=== PATIENT | male | born 1995 | race African-American/Black ===

== ENCOUNTER 2022-07-29 12:37 | Inpatient (IN) | payer OTHER, SELFPAY ==
--- NOTE | 2022-07-29 12:52 | ED_ITS ---
HPI - General Adult General Chief complaint: Psychiatric Symptoms Stated complaint: CRISIS,AGGITATED, SPEAKING LOUD PER EMS Time Seen by Provider: 07/29/22 12:51 Source: patient and EMS Mode of arrival: EMS Limitations: other (patient is having a psychotic break) History of Present Illness HPI narrative: Patient is a 26 year old assigned male at with an unknown medical history presenting to the emergency department today in an obvious psychotic break. Patient is actively yelling about Adrian and that his sister is trying to kill him. Patient is a section 12 via N from the [facility]. Patient refusing to answer any questions. Onset (ago): day(s) Severity: moderate Severity scale (1-10): 5 Treatments prior to arrival: none Related Data Allergies Allergy/AdvReac Type Severity Reaction Status Date / Time No Known Allergies Allergy Verified 07/29/22 12:54 Review of Systems Review of Systems: Yes Unobtainable due to mental status (patient in active p sychotic episode) Constitutional: Constitutional: Denies malaise Eyes: Eyes: Denies eye discharge and Denies loss of vision ENT: Denies dizziness, Denies neck mass and Denies throat swelling Cardiovascular: Cardiovascular: Denies dyspnea Respiratory: Respiratory: Denies cough and Denies dyspnea Gastrointestinal: Gastrointestinal: Denies vomiting Genitourinary: Genitourinary: Reports no additional male genitourinary complaints, Denies hematuria, Denies oliguria, Denies difficulty urinating, Denies dysuria, Denies urinary frequency, Denies urinary hesitancy, Denies urinary incontinence and Denies urinary urgency Musculoskeletal: Musculoskeletal: Denies numbness, Denies stiffness and Denies tingling Neurologic: Denies dizziness, Denies loss of vision, Denies numbness and Denies tingling Psychiatric: Psychiatric: Reports difficulty concentrating and Reports paranoia Endocrine: Endocrine: Reports no additional endocrine complaints Hematologic/Lymphatic: Hematologic/Lymphatic: Reports no additional hematologic/lymphatic complaints Allergic/Immunologic: Allergic/Immunologic: Denies throat swelling PMFSH Past Medical History Attestation statement: The following information was validated with the patient. Source: old records reviewed Social History Social History Advance Directives: No Advance Directives Information Provided: No Guardian: No Physical Exam ED Vital Signs: Vital Signs - 24 hr 07/29/22 13:42 Temperature 98 F Pulse Rate 81 Respiratory Rate 18 Blood Pressure 137/90 H Pulse Oximetry 99 Oxygen Delivery Method Room Air BMI result Body Mass Index 25.0 Const General: cooperative, no acute distress, alert and awake Nutritional Appearance: well nourished Orientation/consciousness: patient oriented x3 Limitations: no limitations HENMT Head: Yes normal to inspection and Yes atraumatic Ears: hearing grossly normal bilaterally and external ears normal General nose exam: Normal external nose present, no nasal discharge noted and no epistaxis Face and sinus: Yes normal facial exam, No abrasion and No laceration Mouth: Normal oral and palatal mucosa present, no drooling and no muffled voice Eyes General: appearance normal, both eyes and all related structures Periorbital: periorbital findings normal Eyelids: Yes eyelids normal Conjunctivae: conjunctivae normal Pupils: Equal, round and reactive pupils present EOM: EOMs intact bilaterally Neck Neck: Yes normal visual inspection, Yes full ROM and Yes no lymphadenopathy Chest Chest palpation & inspection: normal inspection of the chest Resp Effort & Inspection: normal respiratory effort and able to speak in complete sentences Auscultation: clear to auscultation bilaterally Cardio Rate: regular rate Rhythm: regular rhythm GI Inspection: Yes normal to inspection Neuro General: patient oriented x3 and moves all extremities Cranial nerves: Yes Equal, round and reactive pupils present Cognition (Neuro): normal cognition Motor exam (neuro): 5/5 motor strength present throughout Sensory Exam: Normal double simultaneous stimulation for sensation Coordination: [id number] test normal Extrem General: Yes normal to inspection, Yes full ROM and Yes capillary refill normal Psych Appearance: well kempt Speech and movement: Pressured speech present Affect: Labile affect present Attitude: Belligerent attititude/behavior present Thought process: Circumstantial thought process present, Flight of ideas present, Illogical thought process present and Loose association thought process present Thought content: Paranoid delusions present and delusions Insight: Poor insight present (Psych) Judgement: Poor judgement present (Psych) Medications Administered Discontinued Medications Generic Name Dose Route Start Last Admin Trade Name Freq PRN Reason Stop Dose Admin Divalproex Sodium 500 mg 07/29/22 16:19 07/29/22 16:50 Divalproex Sodium Er 500 Mg Tab.Er.24h PO 07/29/22 16:20 Not Given ONCE ONE Lorazepam 2 mg 07/29/22 13:30 07/29/22 13:42 Lorazepam 1 Mg Tablet PO 07/29/22 13:31 Not Given ONCE ONE Risperidone 3 mg 07/29/22 13:30 07/29/22 13:42 Risperidone 3 Mg Tablet PO 07/29/22 13:31 Not Given ONCE ONE Medical Decision Making Medical Decision Making [facility] Narrative: Patient is a 26 year old assigned male at presenting to the emergency department today in an acute psychotic episode. Patient's physical exam showed an acutely psychotic individual. Patient's lab work is pending at this time. Patient will be admitted to psych here once medically cleared. Differential Diagnoses: Differential diagnosis Differential Diagnosis: The differential diagnosis associated with the patient?s presentation includes: psychosis. Discharge Plan Discharge Clinical Impression: Acute psychosis Patient Disposition: Still a Patient Print Language: Ukrainian
[2022-07-29 13:42] VITALS: BP 137/90; PULSE 81; RESP 18; TEMP 36.6; O2SAT 99; BMI 25.0
--- NOTE | 2022-07-29 15:17 | PC.NURSE ---
clients sister called Sarah vera stating client is ivolved with chd yellow team and zari phone number is [phone]. she states if he leaves the hospital he has no where to stay
[2022-07-29 15:33] LABS: Amphetamine Screen Urine Not Detected (Not Detect); Barbiturates, Urine Not Detected (Not Detect); Benzodiazepines Screen Urine Not Detected (Not Detect); Cannabinoid Screen Urine POSITIVE (Not Detect); Cocaine Screen Urine Not Detected (Not Detect); Fentanyl, urine Not Detected (Not Detect); Opiate Screen Urine Not Detected (Not Detect); Phencyclidine Screen Urine Not Detected (Not Detect)
[2022-07-29 15:37] LABS: COVID-19 Test Negative (Negative); IDNOW Serial# 9DB6401D
--- NOTE | 2022-07-29 18:10 | PHA.MEDREC ---
Pharmacy Consult ? Medication Reconciliation Pharmacy has completed the medication reconciliation. Only able to use claim history, medicatiosn last filled 07/22/22
--- NOTE | 2022-07-29 18:48 | PC.ADMIT ---
Pt is a 26 year old male who present to from [facility] at approx 1835 on a 12B. Pt is covid - tox screen + for THC. Per chart review, pt brought to the ED by EMS. Pt is transported into the [facility] with police and security present. Pt was placed on a section 12 by [facility] crisis police co-response clinician per sec 12, pt is off his medications and experiencing increased psychotic symptoms. Upon arrival, he presented with hyper-verbal, loud and tangential speech. Pt reports that his sister called 911 because she always does this. According to hx provided by [facility] pt has a hx of schizophrenia with hx of inpt hospitalization. During admit, pt wanted to immediately go to his room and lay down. Pt answered a few questions with covered wrapped around his head. Pt reported that he had no thoughts of hurting himself or others. Pt reported that he will not take his HS medications of Depakote. Pt stopped answering questions and reported he was going to bed. Provider notified of admission and to place orders. Start treatment plan and monitor for safety.
[2022-07-30] MEDS: LORazepam 1 MG TABLET 2 MG PO (06:39)
[2022-07-30] MEDS: diphenhydrAMINE HCL 25 MG CAPSULE 50 MG PO (06:39)
--- NOTE | 2022-07-30 06:42 | PC.NURSE ---
accepted benadryl and ativan po. refused haldol ''I've get the shakes from it'' woke up angry, verbalizing that he hates his family, they steal from him. ''I don't need to be here, they do'' tone is sarcastic and angry, volume is loud. is wearing boxers with his segun top open in the back exposing his buttocks. will not cover up due to current agitation.
--- NOTE | 2022-07-30 06:53 | PC.NURSE ---
still agitated but placed 2nd gown on to cover back side
[2022-07-30 08:54] VITALS: BP 118/76; PULSE 71; RESP 18; TEMP 36.4; O2SAT 98
--- NOTE | 2022-07-30 10:35 | HO.PSYADMNOT ---
HPI Date of Service: 07/30/22 Chief Complaint: psychosis/ciera Sources of Information: patient interviewed, chart reviewed and crisis/core team assessment reviewed HPI Subjective Notes: [place] Warning and Section 12B Narrative: Patient is a 26-year-old male with history of psychosis and agitated behaviors who presents after his sister called crisis for psychotic symptoms.? On arrival to the emergency room patient was yelling.? He was also initially angry and yelling on the unit but is now calm and cooperative, organized in speech and behavior and with linear thought process.? He apologized for these ??eruptions? saying that he was just upset about being taken to the hospital.? Patient says that he recently got out of in-patient admission at [facility] due to being triggered by history of trauma. For the last few days he says he was staying at a hotel and that he has been consistent with taking his medications regularly.? Patient was accepted back to live at his sister's house but reports he went there with some trepidation since she is ?starkey? and gets upset about small things easily; she also asks him repeatedly if he took his medication and does not believe him unless she sees him do so herself.? He says he was sitting calmly on the couch and she was angry that he had not taken off his shoes, which he showed to this television script writer demonstrating that they were new and clean.? When he declined to do so she said she was going to call crisis and the next thing he knew crisis in the police were there.? He denies getting angry or being threatening in any way.? Patient said that if he is allowed to go back to his sisters that is fine; if she does not want him there he is also fine with going to a hotel in says he has money.? Patient says he takes Risperdal 3 mg daily but says that he does not take Depakote (which looks like it was prescribed and recent admission). ?Patient denies any SI or any history of SI; denies any HI or AVH. ?He gives permission and signs RO I had to call his sister and get her side of the story. Past Psychiatric History: Recent psychiatric admission at [facility] Patient reports other psychiatric admissions Reports he has been on medications since he was 15 years old Medical Evaluation Reviewed: Yes [facility] Medical History (Updated 07/30/22 @ 15:55 by Owen Posey MD) Chronic post-traumatic stress disorder (PTSD) Psychotic disorder Social History: Patient has supportive sister Sarah; his mother lives locally, but not sure of the relationship Patient has a son who lives with the bio mother; pt has not seen in several months Played sports in high school Intermittently stays at his sister Sarah's house Diagnostics Vital Signs (24Hr): Vital Signs - 24 hr 07/29/22 13:42 07/30/22 08:54 Temperature 98 F 97.5 F Pulse Rate 81 71 Respiratory Rate 18 18 Blood Pressure 137/90 H 118/76 Pulse Oximetry 99 98 Oxygen Delivery Method Room Air Room Air BMI result Body Mass Index 25.0 Labs Labs: Laboratory Results - last 48 hr 07/29/22 07/29/22 15:17 15:17 Urine Opiates Screen Not Detected Urine Fentanyl Screen Not Detected Ur Barbiturates Screen Not Detected Ur Phencyclidine Scrn Not Detected Ur Amphetamines Screen Not Detected U Benzodiazepines Scrn Not Detected Urine Cocaine Screen Not Detected U Marijuana (THC) Screen POSITIVE H COVID-19 ([facility]) Negative COVID-19 Clin Com See Note Meds/Allergies Meds Home Medications Medication Instructions Recorded Confirmed Type divalproex 500 mg tablet,extended 1 tab PO BEDTIME 07/29/22 07/29/22 History release 24 hr hydroxyzine pamoate 50 mg capsule 1 cap PO Q6H PRN anxiety 07/29/22 07/29/22 History melatonin 3 mg tablet 3 tab PO BEDTIME PRN Sleep 07/29/22 07/29/22 History prazosin 1 mg capsule 1 cap PO BEDTIME nightmares 07/29/22 07/29/22 History risperidone 2 mg tablet 1 tab PO DAILY@1700 07/29/22 07/29/22 History risperidone 3 mg tablet 1 tab PO BEDTIME 07/29/22 07/29/22 History trazodone 50 mg tablet 1 tab PO BEDTIME PRN insomnia 07/29/22 07/29/22 History Allergies Allergies Allergy/AdvReac Type Severity Reaction Status Date / Time No Known Allergies Allergy Verified 07/29/22 12:54 Assessment & Plan Assessment & Plan (1) Psychotic disorder: Status: Acute Code(s): F29 - Unspecified psychosis not due to a substance or known physiological condition (2) Chronic post-traumatic stress disorder (PTSD): Status: Acute Code(s): F43.12 - Post-traumatic stress disorder, chronic Plan Patient is a 26-year-old male with history of psychosis and agitated behaviors who presents after his sister called crisis for psychotic symptoms.? On arrival to the emergency room patient was yelling.? He was also initially angry and yelling on the unit but is now calm and cooperative, organized in speech and behavior and with linear thought process. -although patient is currently presenting well, Obviously something upset sister enough to call crisis/police.? -Currently it is not clear if this incident has more to do with patients psychotic illness/symptoms or if it is more related to a brother-sister relational argument. -Patient signed TARA and allows for collateral to be obtained. -Will continue home medications; discussed HARRISON which patient says he's been considering PLAN: Section 12b (television script writer offered patient to sign a CV but he refused and asks for discharge) Q 15 minute checks Obtain collateral from Sister Sarah and CHD worker Myron Continue Risperdal 3 mg daily Trazodone 50 mg q.h.s. Hydroxyzine 50 mg p.r.n. Discontinued Depakote; patient says he does not take television script writer left message for outpt provider regarding med regimen Patient educated on: diagnosis and medication risk/benefits Informed Consent: understands, does not understand and further education needed Reason for continued inpatient stay Substantial Risk for: rapid decompensation
[2022-07-30] MEDS: risperiDONE 3 MG TABLET PO (12:20)
[2022-07-30 18:00] VITALS: BP 118/68; PULSE 72; RESP 16; TEMP 35.9; O2SAT 99
[2022-07-31] MEDS: OLANZapine ODT 10 MG TAB.RAPDIS 5 MG TRANSLINGU ×2 (00:34→08:25)
[2022-07-31] MEDS: diphenhydrAMINE HCL 25 MG CAPSULE 50 MG PO (00:34)
--- NOTE | 2022-07-31 01:09 | PC.NURSE ---
Pt awoke at 0015 and began shouting in the halls. The content of the shouting appeared nonsensical; pt shouted accusations at persons who were not present. Pt appeared focused on someone stealing foodstamps or food from him. Staff attempted to redirect pt with regard to volume. Pt shouted abuse at staff members. Pt shouted, You're a dumb whore! Get out of my face! and Stop trying to trap me in this faggotry! I don't belong here. Staff then asked that pt move to an empty common room to mitigate the impact of the shouting. Pt appeared belligerent. Pt stated, I wake up to this, and you tell me to shut the fuck up? I can state how I feel. I can express myself. Fuck this place. Staff attempted to emphasize that other patients slept. Pt stated, I don't give a fuck about them. I don't belong here! Security was called. Pt continued to appear agitated and shouted further abuse at staff. At 0050, pt accepted Zyprexa and Benadryl from a nurse. Pt continued to shout in the [facility] for a few minutes until stating, I'm going to my bed. Don't follow me.
[2022-07-31] MEDS: risperiDONE 3 MG TABLET PO (07:57)
[2022-07-31 07:58] VITALS: BP 115/70; PULSE 105; RESP 18; TEMP 36.7; O2SAT 98
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
[2022-07-31] MEDS: Paliperidone Palmitate 234 MG/1.5 ML SYRINGE IM (13:44)
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
== END 2022-07-31 14:53 | disposition home or self-care (01) | DRG 750 ==
LOC: HO.ED 18:04 → HO.PM5 18:05
PROVIDERS: Admitting Provider Psychiatry & Neurology Psychiatry; Emergency Provider Physician Assistant Medical; Visit Provider Psychiatry & Neurology Psychiatry
DX: F25.9 Schizoaffective disorder, unspecified (principal); F43.12 Post-traumatic stress disorder, chronic; Z20.822 Contact with and (suspected) exposure to COVID-19; Z79.899 Other long term (current) drug therapy
CPT/HCPCS: 80307; 87635; 99285; J2426